=== PATIENT | male | born 2000 | race African-American/Black ===

== ENCOUNTER 2019-12-25 11:52 | Emergency (ER) | payer BC, SELFPAY ==
[2019-12-25 12:14] VITALS: BP 103/64; PULSE 77; RESP 16; TEMP 36.9; O2SAT 100
--- NOTE | 2019-12-25 12:26 | ED.BACK ---
HPI - Back Pain/Injury General Chief Complaint: Back Pain/Injury Stated Complaint: Back pains Time Seen by Provider: 12/25/19 12:19 Source: patient and RN notes reviewed Mode of arrival: ambulatory Limitations: no limitations History of Present Illness HPI Narrative: Patient presents today complaining of right mid back pain. States he injured his back picking up a heavy object at work approximately 1 hour prior to exam. Currently rates his pain 9/10 and has tried no interventions for pain prior to arrival. Denies numbness or tingling in the arms or legs. Pain increases with movement. MD elicited complaint: back pain Related Data Home Medications Medication Instructions Recorded Confirmed No Home Medications 12/25/19 12/25/19 Allergies Allergy/AdvReac Type Severity Reaction Status Date / Time No Known Allergies Allergy Verified 12/25/19 12:13 Review of Systems Review of Systems: Narrative: CONSTITUTIONAL: Denies body aches, fever, chills, or sweats. EYES: Denies visual changes, redness, or discharge. ENT: Denies rhinorrhea, congestion, sore throat, or otalgia. CARDIOVASCULAR: Denies chest pain, palpitations, or edema. RESPIRATORY: Denies cough or dyspnea. GASTROINTESTINAL: Denies abdominal pain, nausea, vomiting, or diarrhea. GENITOURINARY: Denies dysuria or hematuria. SKIN: Denies rash, itching, or wounds. MUSCULOSKELETAL: Denies joint pain, or myalgia. + Mid back pain NEUROLOGIC: Denies headache, numbness, tingling, or weakness. PSYCH: Denies depression or anxiety. PMFSH Comments At time of signature, I have reviewed and agree with nursing past medical, surgical, social and family history unless otherwise noted. Please see nursing chart for further information. There is no relevant family history pertinent to the presenting complaint Exam Narrative: Exam Narrative: GENERAL: Well-appearing, well-nourished, and in no acute distress. Appearance out of proportion to pain rating. HEAD: Normocephalic, atraumatic. EYES: EOMI. No redness or drainage. ENT: Mucous membranes pink and moist. NECK: Normal AROM. Supple. No lymphadenopathy. CHEST: No respiratory distress. Clear to auscultation. HEART: Regular rate and rhythm. MUSCULOSKELETAL: No bony tenderness of the cervical, thoracic, or lumbar spine. Patient localizes his pain in the right paraspinal midthoracic area, but this area is nontender to palpation. Increased pain with twisting motion or when moving his face to the right shoulder. No crepitus or deformity noted. No edema or ecchymosis noted. Full range of motion of all extremities. Distal sensation intact. Capillary refill normal. EXTREMITIES: Normal range of motion. No edema. SKIN: Warm, dry, no rash. Capillary refill normal. Normal skin turgor. NEURO: No focal deficits. Alert and oriented x3. Gait steady. PSYCH: Normal affect. No signs of depression or anxiety. Course Vital Signs Vital signs: Vital Signs Temperature 98.4 F 12/25/19 12:14 Pulse Rate 77 12/25/19 12:14 Respiratory Rate 16 12/25/19 12:14 Blood Pressure 103/64 12/25/19 12:14 Pulse Oximetry 100 12/25/19 12:14 Temperature 98.4 F 12/25/19 12:14 Pulse Rate 77 12/25/19 12:14 Respiratory Rate 16 12/25/19 12:14 Blood Pressure 103/64 12/25/19 12:14 Pulse Oximetry 100 12/25/19 12:14 Reviewed MDM - Back Pain/Injury Differential Diagnosis Differential diagnosis: Likely thoracic back pain and other (Muscle strain, bulging disc) Critical Care Time Critical Care Time Critical Care Time: No Discharge Plan Discharge Clinical Impression: Strain of thoracic back region Patient Disposition: Home, Self-Care Condition: Stable Instructions: Thoracic Back Strain (ED) Additional Instructions: Please take the naproxen as prescribed until gone. Use ice for the first 24 hours, then switch to heat. Follow-up with your employer regarding Workmen's Compensation. Rest. . Patient Dominick
== END 2019-12-25 12:38 | disposition home or self-care (01) ==
PROVIDERS: Emergency Provider Nurse Practitioner
DX: S29.012A Strain of muscle and tendon of back wall of thorax, initial encounter (principal); X50.0XXA Overexertion from strenuous movement or load, initial encounter; Y99.0 Civilian activity done for income or pay
CPT/HCPCS: 99213; G0463